=== PATIENT | male | born 1945 | race Caucasian/White ===

== ENCOUNTER 2018-08-07 06:34 | Emergency (ER) | payer MEDICARE ==
[2018-08-07 07:22] LABS: #Eosinphils 0.1 thou/uL (0.0-0.7); #Lymphocytes 1.4 thou/uL (1.20-3.40); #Monocytes 1.7 thou/uL (0.11-0.59); #Neutrophils 12.3 thou/uL (1.40-6.50); %Basophils 0.2 % (0.0-1.0); %Eosinophils 0.8 % (0.0-10.0); %Lymphocytes 8.9 % (21.0-51.0); %Neutrophils 79.1 % (42.0-75.0); Hemoglobin 17.8 g/dL (14.0-18.0); Mean Corpuscular HGB CONC 34.9 g/dL (32.0-36.0); Mean Corpuscular Hemoglobin 32.6 pg (27.0-31.0); Mean Corpuscular Volume 93.5 fL (78.0-98.0); Mean Platelet Volume 7.1 fL (7.4-10.4); Platelet Count 232 thou/uL (130-400); Red Blood Cell (RBC) Count 5.44 mill/uL (4.70-6.10); White Blood Cell (WBC) Count 15.6 thou/uL (4.8-10.8)
[2018-08-07 07:30] LABS: ALT (SGPT) 28 U/L (8-55); AST (SGOT) 30 U/L (5-34); Albumin 4.8 g/dL (3.4-4.8); Alkaline Phosphatase 114 U/L (40-150); Anion Gap 16 mmol/L (10-20); BUN (Urea Nitrogen) 8 mg/dL (8.4-25.7); Bilirubin, Total 1.4 mg/dL (0.2-1.2); Calc. Creatinine Clearance 0 mL/min (70-130); Calcium 10.3 mg/dL (7.8-10.44); Carbon Dioxide 27 mmol/L (23-31); Chloride 91 mmol/L (98-107); Estimated GFR-MDRD 73; Globulin 3.7 g/dL (2.4-3.5); Glucose 117 mg/dL (83-110); Lipase 34 U/L (8-78); Protein, Total 8.5 g/dL (5.8-8.1); Sodium 130 mmol/L (136-145)
[2018-08-07] MEDS ORDERED: Ondansetron PF 4 MG/2 ML Vial ONE (07:31)
[2018-08-07] MEDS ORDERED: Fentanyl 100 MCG/2 ML VIAL ONE (07:31)
--- NOTE | 2018-08-07 08:16 | RAD ---
SINGLE VIEW OF THE CHEST: COMPARISON: 08/05/2018. HISTORY: Dehydration. Abdominal pain. Vomiting. FINDINGS: Single view of the chest shows a normal sized cardiomediastinal silhouette. There is no evidence of c onsolidation, mass, or pleural effusion. The bones are unremarkable. IMPRESSION: No evidence of acute cardiopulmonary disease. POS: [facility]
[2018-08-07 09:49] LABS: Bilirubin Negative (Negative); Blood, Urine Negative (Negative); Clarity CLEAR (Clear); Glucose, Urine (Dipstick) Negative (Negative); Leukocyte Negative (Negative); Nitrite Negative (Negative); Protein, Urine (Dipstick) Negative (Neg-Trace); Specific Gravity, Urine 1.006 (1.002-1.036); Urobilinogen 0.2 mg/dL (0.2-1.0)
--- NOTE | 2018-08-07 10:15 | CT ---
CT ABDOMEN AND PELVIS WITH CONTRAST: Date: 08/07/18 HISTORY: Fall. Vomiting. Abdominal pain. COMPARISON: None. FINDINGS: There is a subtle peripheral ground-glass opacity in the left lower lobe, nonspecific, incompletely e valuated. Please see CT examination dated 08/05/18. No pericardial effusion. Prostate is enlarged. Oral contrast has transited through a majority of the small bowel. There is enlargement of the left adrenal gland with some adjacent stranding concerning for hemorrhage . Adrenal gland measures up to 3.2 cm in size. The aortic contour is nonaneurysmal with dense calcifications. There are multiple hypodensities of elinor th kidneys. There is either calculus or an enhancing mass within the posterior wall of the gallbladder measuring approximately 5.0 mm. Mild enlargement right adrenal gland. Spleen and pancreas unremarkable. No retroperitoneal adenopathy. IMPRESSION: 1. Enlarged left adrenal gland with concern for hemorrhage, with some periadrenal stranding and incr eased density, which is nonhomogeneous within the left adrenal gland. A follow-up adrenal protocol CT or MRI is recommended after resolution of acute symptoms. 2. Marked prostatomegaly. POS: [facility]
[2018-08-07] MEDS ORDERED: Fleet Enema 133 ML BOT FS SCH (11:00)
[2018-08-07] MEDS ORDERED: Ketorolac Tromethamine 30 MG/ML VIAL ONE (11:10)
[2018-08-07] MEDS ORDERED: Iopamidol 370 76% 50 ML VIAL FS ONE (13:36)
[2018-08-07] MEDS ORDERED: ISOVUE-370 76%-LOCM 1 ML ONE (13:36)
== END 2018-08-07 13:00 | disposition home or self-care (01) ==
LOC: ERS 06:34
DX: K80.20 Calculus of gallbladder without cholecystitis without obstruction (principal); E87.1 Hypo-osmolality and hyponatremia; F17.210 Nicotine dependence, cigarettes, uncomplicated
CPT/HCPCS: 71045; 74177; 80053; 81003; 83605; 83690; 84484; 85025; 93005; J1885; J2405; J3010

== ENCOUNTER 2018-08-09 22:43 | Inpatient (IN) | payer MEDICARE ==
[2018-08-09 23:56] LABS: #Eosinphils 0.1 thou/uL (0.0-0.7); #Lymphocytes 1.3 thou/uL (1.20-3.40); #Monocytes 1.3 thou/uL (0.11-0.59); #Neutrophils 9.1 thou/uL (1.40-6.50); %Basophils 0.4 % (0.0-1.0); %Lymphocytes 10.7 % (21.0-51.0); %Monocytes 10.7 % (0.0-10.0); %Neutrophils 77.3 % (42.0-75.0); Hemoglobin 15.9 g/dL (14.0-18.0); Mean Corpuscular HGB CONC 35.1 g/dL (32.0-36.0); Mean Corpuscular Hemoglobin 32.2 pg (27.0-31.0); Mean Corpuscular Volume 91.5 fL (78.0-98.0); Mean Platelet Volume 7.3 fL (7.4-10.4); Platelet Count 71 thou/uL (130-400); Platelet Morphology Comment Appears Decreased; RBC Distribution Width 11.8 % (11.5-14.5); Red Blood Cell (RBC) Count 4.94 mill/uL (4.70-6.10); White Blood Cell (WBC) Count 11.8 thou/uL (4.8-10.8)
[2018-08-09 23:59] LABS: ALT (SGPT) 25 U/L (8-55); AST (SGOT) 33 U/L (5-34); Albumin 3.9 g/dL (3.4-4.8); Alkaline Phosphatase 121 U/L (40-150); Anion Gap 11 mmol/L (10-20); BUN (Urea Nitrogen) 14 mg/dL (8.4-25.7); Bilirubin, Total 1.8 mg/dL (0.2-1.2); Calc. Creatinine Clearance 0 mL/min (70-130); Calcium 9.3 mg/dL (7.8-10.44); Carbon Dioxide 29 mmol/L (23-31); Chloride 88 mmol/L (98-107); Estimated GFR-MDRD 80; Globulin 3.2 g/dL (2.4-3.5); Glucose 102 mg/dL (83-110); Lipase 14 U/L (8-78); Potassium 3.2 mmol/L (3.5-5.1); Protein, Total 7.1 g/dL (5.8-8.1); Sodium 125 mmol/L (136-145)
[2018-08-10] MEDS ORDERED: Ondansetron PF 4 MG/2 ML Vial IVP PRN (02:19)
[2018-08-10] MEDS ORDERED: Zolpidem Tartrate 5 MG TAB PO PRN (02:19)
[2018-08-10] MEDS ORDERED: Ondansetron PF 4 MG/2 ML Vial ONE (02:20)
[2018-08-10] MEDS ORDERED: Morphine 4 MG/ML VIAL ONE (02:20)
[2018-08-10] MEDS ORDERED: Morphine 4 MG/ML VIAL SLOW IVP PRN (02:40)
[2018-08-10] MEDS ORDERED: Docusate 100 MG CAP PO PRN (02:40)
--- NOTE | 2018-08-10 02:47 | PDOC.EVN ---
Event Note - Event Note Event Note: H&P [id number]
[2018-08-10] MEDS ORDERED: HYDROmorphone 0.5 MG/0.5 ML SYRINGE ONE (03:01)
--- NOTE | 2018-08-10 03:15 | HP ---
CHIEF COMPLAINT: Nausea, vomiting, and abdominal pain. HISTORY OF PRESENT ILLNESS: This is a 73-year-old male admitted to the emergency room, presenting with nausea, vomiting, and abdominal pain. Of note, patient was here approximately 2 days ago with similar complaints, had a CTA at that point in time of the chest and thorax and was found to have patchy ground-glass opacities. No evidence of PE at that time. The patient had an abdominal exam done at that point in time, was found to have an adrenal hemorrhage as well. The patient states that currently he is presenting here because of abdominal pains, nausea, vomiting, and not having had a bowel movement. The patient states that he is otherwise able to eat, but due to the abdominal complaints, he has not been eating. The patient's is at bedside, who provides most of the history as well. The patient, of note, has a 60-year smoking history, has been smoking 2-3 packs a day daily as well. The patient is seen and examined in the ER. at bedside. All questions answered. ALLERGIES: NO KNOWN DRUG ALLERGIES. HOME MEDICATIONS: See MAR. FAMILY HISTORY: Unknown. SOCIAL HISTORY: Heavy drinker, heavy smoker, per . He smokes apparently two packs a day for the past 60 years and drinks daily, 3-4 beers a day. REVIEW OF SYSTEMS: All systems reviewed. Pertinent positives in HPI, otherwise negative. PHYSICAL EXAMINATION: VITAL SIGNS: Blood pressure is 128/88, temperature of 98, O2 saturations 100% on 2 L nasal cannula, and heart rate of 88. GENERAL: The patient appears to be mildly uncomfortable, sitting in a chair and smells of cigarette smoke. Disheveled, does not appear to have cleaned himself. HEENT: Pupils are equal, round, and reactive to light and accommodation. Oral cavity moist and pink. Poor dentition. NECK: Supple. Mobile. Nontender thyroid appreciated.. RESPIRATORY EXAM: Mild inspiratory crackles in bilateral lower lobes. A very faint slight increase in AP diameter. No rales or rhonchi appreciated. CARDIOVASCULAR EXAM: S1 and S2. No murmurs, rubs, or gallops appreciated sinus rhythm. ABDOMINAL EXAM: Positive bowel sounds. Soft. Tender to palpation in the epigastric region. EXTREMITIES: 2+ peripheral pulses noted. No cyanosis, clubbing, or edema. NEUROLOGIC: Cranial nerves 2 through 12 intact. No loss of sensory function. Antalgic gait. LABORATORY DATA: CBC reviewed. Basic metabolic panel reviewed. Chest x-ray, abdominal and pelvis CT scan was reviewed as well. Official radiological read was pending. ASSESSMENT: 1. Abdominal pain, concerning for volvulus versus rectosigmoid obstruction. 2. Hyponatremia. 3. Hyperkalemia. 4. Nausea and vomiting. PLAN: 1. At this point in time, we will place the patient n.p.o., provide pain medications, and normal saline. Consult GI and Surgery. He appears to be severely constipated. Unclear if this is secondary to volvulus or obstruction. Case discussed between ER and General Surgery. Plan was made to admit the patient, have GI evaluation prior to any potential surgical intervention. 2. The patient appears to have low sodium levels, low potassium levels, does have supposedly per history collected from the . However, given the other adrenal gland and normal blood pressure, it is unclear if this is secondary to a potential neuroendocrine syndrome from lung tumor or medication side effect with a simple lack of nutritional intake for the past seven days per . The patient has had significant weight loss. At this point in time, we will review the CTA of the chest done three days ago and obtain serum osmolality, urine osmolality, urine sodium, urine creatinine, calculate FENA. Start the patient on a diet once cleared by General Surgery and Gastroenterology provide normal saline for now. 3. Repeat laboratory work in the morning, p.r.n. medications. The patient wishes to remain a full code. Case and plan discussed with the patient and at length. They understand and agree with this plan. Job ID: [id number]
[2018-08-10 03:38] LABS: #Basophils 0.1 thou/uL (0.0-0.2); #Eosinphils 0.1 thou/uL (0.0-0.7); #Monocytes 1.2 thou/uL (0.11-0.59); #Neutrophils 8.4 thou/uL (1.40-6.50); %Basophils 0.5 % (0.0-1.0); %Eosinophils 0.7 % (0.0-10.0); %Lymphocytes 9.7 % (21.0-51.0); %Monocytes 11.2 % (0.0-10.0); %Neutrophils 77.9 % (42.0-75.0); Hemoglobin 14.1 g/dL (14.0-18.0); Mean Corpuscular HGB CONC 35.1 g/dL (32.0-36.0); Mean Corpuscular Hemoglobin 33.1 pg (27.0-31.0); Mean Corpuscular Volume 94.3 fL (78.0-98.0); Mean Platelet Volume 7.3 fL (7.4-10.4); Platelet Count 53 thou/uL (130-400); RBC Distribution Width 11.9 % (11.5-14.5); Red Blood Cell (RBC) Count 4.25 mill/uL (4.70-6.10); White Blood Cell (WBC) Count 10.8 thou/uL (4.8-10.8)
[2018-08-10 03:54] LABS: Anion Gap 14 mmol/L (10-20); BUN (Urea Nitrogen) 14 mg/dL (8.4-25.7); Calc. Creatinine Clearance 0 mL/min (70-130); Calcium 8.2 mg/dL (7.8-10.44); Carbon Dioxide 22 mmol/L (23-31); Chloride 92 mmol/L (98-107); Estimated GFR-MDRD 87; Glucose 99 mg/dL (83-110); Potassium 3.3 mmol/L (3.5-5.1); Sodium 125 mmol/L (136-145)
[2018-08-10] MEDS: Sodium Chloride 0.9% 1,000 ML IV SCH ×4 (03:57→23:17)
--- NOTE | 2018-08-10 07:43 | CT ---
CT ABDOMEN AND PELVIS WITH CONTRAST CT LUMBAR SPINE WITH CONTRAST WITH 3D VOLUME RENDERING: Date: 08/10/18 CLINICAL HISTORY: Post-traumatic pain, injury. FINDINGS: The imaged lung bases reveal no lobar consolidation. There is no pleural effusion visualized. There i s prominent distention of the colon, most notable at the right hemicolon, with the appearance that ma y be related to a component of a cecal bascule. When comparing to the 08/07/18 exam, this has develop ed. There remains heterogeneity and mass-like enlargement of the left adrenal gland. Bilateral renal hypodensities are redemonstrated. No free air. There is heterogeneity and enlargement of the prostate gland. CT imaging of the lumbar spine reveals multilevel degenerative change without compression fra cture or significant subluxation. IMPRESSION: 1. Redemonstration of heterogeneity and mass-like prominence of the left adrenal gland, which again may be related to underlying adrenal hemorrhage, either due to injury or possibly related to mass. As was previously recommended, follow-up dedicated imaging upon resolution of acute symptoms is recomme nded. 2. Interval development of prominent distention of the right hemicolon in the morphologic appearance that can be seen in the setting of cecal bascule or volvulus. Recommend appropriate clinical managem ent and follow-up. POS: [facility]
[2018-08-10 08:09] VITALS: BMI 20.7
[2018-08-10] MEDS ORDERED: Prevnar 13-Val Conj/PF 0.5 ML SYRINGE IM ONE (08:30)
--- NOTE | 2018-08-10 08:42 | CT ---
PRELIMINARY REPORT/[facility]/EMERGENCY AFTER HOURS PROCEDURE: EXAM: CT Chest Without Contrast EXAM DATE/TIME: 08/10/2018 2:47 AM CLINICAL HISTORY: 73 years old, male; Signs and symptoms; Cough; Patient HX: Er wr; 73 yo m presents to ed with C/O SOB , chills, cough TECHNIQUE: Imaging protocol: Axial computed tomography images of the chest without intravenous contrast. Coronal reformatted images were created and reviewed. COMPARISON: No relevant prior studies available. FINDINGS: Lungs: There is trace debris noted within the bronchi. There is no focal lung consolidation to sugges t pneumonia. Pleural space: Normal. No pneumothorax. No pleural effusion. Heart: Normal. No cardiomegaly. No pericardial effusion. Aorta: The aorta demonstrates mild atherosclerotic calcification. Lymph nodes: Unremarkable. No enlarged lymph nodes. Bones/joints: Unremarkable. No acute fracture. Soft tissues: Unremarkable. Adrenals: There is hyperdensity within the LEFT adrenal gland which is enlarged measuring approximate ly 4 x 3 x 3 cm possibly representing hemorrhage or mass. IMPRESSION: 1. There is trace debris noted within the bronchi. This may represent secretions. 2. There is hyperdensity within the LEFT adrenal gland which is enlarged measuring approximately 4 x 3 x 3 cm possibly representing hemorrhage or mass. Thank you for allowing us to participate in the care of your patient. Dictated and Authenticated by: Angel Mccray MD 08/10/2018 4:10 AM Central Time ([place] & [place]) FINAL REPORT EMERGENT AFTER HOURS EXAM CT CHEST WITHOUT IV CONTRAST: 08/10/2018 2:40 a.m. FINDINGS: Minimal patchy increased density noted within the bronchi, probably related to secretions or mucus. Three-vessel coronary artery calcific disease. A 3 x 4 cm in diameter higher attenuation mass in the left adrenal gland. This certainly could represent some acute hemorrhage. There is some minimal madrigal rrounding fat stranding. Additional imaging with follow-up MRI study, with and without contrast, gabriel ht be of benefit in further assessing this. Moderate colonic distention. I agree with [facility]. POS: [facility]
[2018-08-10] MEDS ORDERED: Heparin 5,000 UNITS/ML VIAL SC SCH (09:00)
--- NOTE | 2018-08-10 09:09 | RAD ---
CHEST 1 VIEW: HISTORY: Chest pain with abdominal pain. COMPARISON: 08/07/2018. FINDINGS: Heart size is within normal limits. Biapical pleural thickening. Scattered increased linear and int erstitial parenchymal changes, evidence for some chronic change and some mild bullous changes. Appea kajal is stable from 08/07/2018. IMPRESSION: Stable chronic changes. POS: [facility]
[2018-08-10 10:26] LABS: Creatinine, Urine 112.28 mg/dL (63-166); Sodium, Urine Less than 20 mmol/L (Not Available)
[2018-08-10] MEDS ORDERED: Fleet Enema 133 ML BOT PR SCH (13:30)
[2018-08-10] MEDS ORDERED: PROPOFOL 200 MG/20 ML VIAL ONE (14:09)
[2018-08-10] MEDS ORDERED: Lidocaine 1% PF 5 ML VIAL ONE (14:09)
--- NOTE | 2018-08-10 15:41 | CON ---
DATE OF CONSULTATION: 08/10/2018 HISTORY OF PRESENT ILLNESS: This is a 73-year-old man, who was admitted with recurrent generalized abdominal pain over the last 4 to 5 days. Pain is described as crampy and intermittent, associated with multiple episodes of nausea and nonbilious emesis. The patient denies any hematemesis, hematochezia, or melena. He admits to some non-quantified weight loss over the last 1 week, which he attributes to anorexia. PAST MEDICAL HISTORY: Unremarkable. PAST SURGICAL HISTORY: He has no previous surgeries. SOCIAL HISTORY: The patient is , lives at home with his . He has greater than 80-[id number]-[id number] cigarette smoking history. He drinks moderate amount of alcohol occasionally. He discusses use of 3 to 4 beers a day. He denies any illicit drug abuse. FAMILY HISTORY: Noncontributory for this patient's age. PREHOSPITALIZATION MEDICATIONS: None. ALLERGIES: THE PATIENT DENIES ANY KNOWN DRUG ALLERGIES. REVIEW OF SYSTEMS: Ten-point review of systems is essentially unremarkable except as stated in past medical history and chief complaint. PHYSICAL EXAMINATION: GENERAL: This reveals a 73-year-old, normally-developed man, who is otherwise coherent and interactive, appears stated age. The patient is alert and oriented x3, appears to be in no acute distress at the time of my evaluation. He has had a fair amount of gait imbalance and had fallen on multiple occasions recently. He denies any head trauma. VITAL SIGNS: Today include blood pressure 125/74, pulse is 98, respiratory rate is 15, temperature 97.8 degrees Fahrenheit, oxygen saturation 94% on room air. HEENT: Reveals normocephalic and atraumatic. He has no sclerae icterus present. NECK: He has no jugular venous distention noted. HEART: Reveals regular rate and rhythm. No murmurs or gallops auscultated. LUNGS: Clear to auscultation bilaterally. Breathing is regular and nonlabored. ABDOMEN: Soft, moderately distended, and diffusely tender to palpation. He has positive rebound tenderness to palpation. Bowel sounds are present and intermittently hyperactive. Liver and spleen are nonpalpable below costal margin. NEUROLOGIC: Reveals no focal deficits present. EXTREMITIES: Reveal 2+ radial and pedal pulses bilaterally. No ankle edema is present. LABORATORY FINDINGS: Laboratory findings today include CBC with 10,800 white blood cells, hemoglobin and hematocrit 14.1 and 40.1 respectively, platelet count is 53,000. This is in contrast to platelet count of 71,000 yesterday with a white blood cell count which was 11,800. Metabolic profile today; sodium 125, potassium 3.3, chloride is 92, bicarb is 22, BUN 14, creatinine 0.86, glucose is 99. Serum osmolality is 263. Lactic acid is normal today at 0.8. I have personally reviewed the CT scan of the abdomen and pelvis, which is remarkable for multiple distended loops of small bowel and right colon. The left colon is partially decompressed. There is, however, some gas in the rectum. There is an incidental finding of an enlarged left adrenal gland, suggestive of either adrenal hemorrhage, especially given recent history of fall. There is no pneumoperitoneum or significant free fluid noted in the peritoneal cavity. IMPRESSION: 1. Acute abdominal pain with associated dilated right colon. Rule out acute large bowel obstruction. 2. Acute hyponatremia, likely secondary to syndrome of inappropriate antidiuretic hormone secretion given this patient's significant history of both alcoholism and tobacco abuse. 3. Acute hypokalemia. 4. Likely, chronic thrombocytopenia. PLAN: 1. We will ask Gastroenterology to evaluate the patient for possible flexible proctosigmoidoscopy to rule out mechanical bowel obstruction secondary to neoplastic process. 2. The patient will likely require surgical intervention following endoscopy. 3. Meanwhile, we will continue with bowel rest and IV hydration and correct abnormal electrolytes. 4. Above findings and plan were discussed with the patient and his at bedside. 5. I have advised the patient that any surgical intervention at this time will likely include bowel resection and possible colostomy, which might be temporary. The patient and his have indicated understanding of information given. 6. I have answered their questions. Thank you again, Dr. Araujo, for allowing me the opportunity to participate in care of this patient. Job ID: [id number]
[2018-08-10] MEDS ORDERED: ISOVUE-370 76%-LOCM 1 ML ONE (17:08)
--- NOTE | 2018-08-10 17:26 | CON ---
DATE OF CONSULTATION: 08/10/2018 CONSULTING PHYSICIAN: Mainor Araujo DO REASON FOR CONSULTATION: Abdominal pain, cecal volvulus. HISTORY OF PRESENT ILLNESS: The patient is a 73-year-old male with past medical history of alcohol abuse, tobacco abuse and probable benign prostatic hyperplasia with elevated PSA, presenting with complaints of abdominal pain. He states that he was in his usual state of health until approximately 5 to 7 days ago when he began having increasing left-sided abdominal pain, that then quickly moved to the periumbilical area. This pain was characterized as a cramping/aching/"blah" type pain, would radiate to the midepigastric area, was constant with waxing and waning severity, and reached a severity of 7-8/10. This pain was worse with burping, pressure/bumping of the region, and increased physical activity, better with taking Pepto-Bismol and having a bowel movement. This abdominal pain was also associated with increased nausea and vomiting with nonbloody emesis and decreased frequency of having a bowel movement, although the patient was passing gas throughout this time as well. With worsening of the symptoms, it prompted him to seek healthcare assistance at [facility] ER and was seen in the ER on [address] scans fairly unrevealing on prior evaluation; however, with the CT scan that was done on August 10, it did show prominent distention of the colon concerning for cecal volvulus. He was ultimately admitted to the hospital for further evaluation. Currently, he denies any fevers, chills, hematemesis, hematochezia, melena, dysphagia or odynophagia. REVIEW OF SYSTEMS: A 10 category review of systems was obtained with all responses negative except for the pertinent positives as listed in HPI. PAST MEDICAL HISTORY: As per HPI. PAST SURGICAL HISTORY: No prior surgeries. FAMILY HISTORY: Denies any GI malignancies. SOCIAL HISTORY: Drinks anywhere between 10 to 12 beers daily and also smokes approximately 1 to 2 packs per day. Denies any illicit drug use. OUTPATIENT MEDICATIONS: None. ALLERGIES: NO KNOWN DRUG ALLERGIES. PHYSICAL EXAMINATION: VITAL SIGNS: Temperature 97.5, pulse 85, blood pressure 136/82, respiratory rate 16, and saturating 95% on room air. GENERAL: The patient was lying in bed, in no acute distress. Alert and oriented x4. HEENT: Normocephalic and atraumatic. NECK: Supple. No JVD noted. CARDIOVASCULAR: Regular rate and rhythm with no discernible murmurs, gallops or rubs. RESPIRATORY: Clear to auscultation bilaterally with no discernible wheezes or rales, although increased resistance to air flow auscultated in the bilateral lower lung pires. ABDOMEN: Normoactive bowel sounds. Soft [id number] abdominal distention as well as tenderness to palpation in relatively all abdominal quadrants, but more especially within the right lower quadrant and left lower quadrant. EXTREMITIES: No cyanosis, clubbing or edema. LABORATORY DATA: CBC with a white blood cell count of 10.8, hemoglobin 14.1, hematocrit 40.1, and platelets 53. Chemistry with a sodium of 125, potassium 3.3, chloride 92, CO2 of 22, BUN 14, creatinine 0.86, and glucose 99. AST 33, ALT 25, and alkaline phosphatase 121. Total bilirubin 1.8, albumin 3.9, and lipase 14. IMAGING DATA: CT of the chest showed trace debris within the bronchi as well as a 4 cm x 3 cm x 3 cm left adrenal mass consistent with hemorrhage or mass. It also showed 3-vessel coronary artery disease as well as moderate colonic distention. CT of the abdomen and pelvis was also obtained on August 10, 2018, which showed prominent distention of the colon, most especially within the cecum with a possible cecal bascule/volvulus. ASSESSMENT AND PLAN: The patient is a 73-year-old male with past medical history of alcohol abuse, tobacco abuse, probable benign prostatic hyperplasia, presenting with increased abdominal pain and imaging concerning for cecal volvulus. Cecal volvulus: The patient is presenting with a relatively acute onset of periumbilical abdominal pain, that would radiate to the epigastric region, is characterized as a cramping/aching-type sensation, will reach a severity of 7-8/10. This is associated with increased nausea, vomiting, and decreased frequency of his bowel movements with his last bowel movement being approximately 3 to 5 days ago. Upon evaluation in the ER within the last 24 to 48 hours, he was noted to have significant colonic distention, centered around the cecum, with imaging findings more concerning for a cecal volvulus. However, upon review with the radiologist, a sigmoid process creating obstruction proximally to the lesion cannot be entirely ruled out at this time, although unlikely given normal caliber of the descending and distal transverse colon. At this time, differential could include a sigmoid mass (less likely), colonic stricture (less likely), cecal volvulus, colonic neoplasm (the patient has never had a colonoscopy) or Tahira syndrome/colonic pseudo-obstruction (less likely). RECOMMENDATIONS: 1. We will maintain the patient on n.p.o. status. 2. We will plan for a flexible sigmoidoscopy later today for evaluation of the distal colon and possible obstructive process there. I would recommend Fleet enemas x2 in order to increase visualization of this particular region and increased risk of perforation with this particular procedure as well. 3. If the left colon is negative for any evidence of colonic obstruction, then I would recommend General Surgery evaluation for decompression of this cecal volvulus. We will continue to follow. Please call with any questions. Job ID: [id number]
--- NOTE | 2018-08-10 18:07 | PRG ---
DATE OF SERVICE: 08/10/2018 SUBJECTIVE: The patient is a 73-year-old male with past medical history significant for 2 to 3 packs per day smoking habit, who presented to the hospital with a 1-week history of worsening nausea, vomiting, and abdominal pain. The patient has been admitted with cecal volvulus versus obstruction. The patient is seen this morning, with his at the bedside. Right now, the patient denies any nausea, vomiting, or diarrhea. He states that he has 5/10 pain located in the right lower quadrant. Otherwise, he has no other pain present. He denies chest pain or shortness of breath. He denies subjective fever or chills. OBJECTIVE: VITAL SIGNS: Blood pressure 125/74. The patient is afebrile. Pulse is 98, respirations 15, O2 saturations 94% on room air. GENERAL: This is an elderly male, resting in bed, breathing comfortably, in no acute distress. NECK: Supple. No lymphadenopathy. No JVD. No carotid bruits. HEENT: Head is atraumatic and normocephalic. Mucous membranes are moist. CV: S1 and S2, regular rate and rhythm. No appreciable murmurs, rubs, or gallops. LUNGS: Regular respiratory rate and pattern, overall clear, the patient does have overall decreased vesicular breath sounds, but no rhonchi or wheezes noted. ABDOMEN: Positive bowel sounds throughout all four quadrants, tender to palpation in right lower quadrant. EXTREMITIES: No edema present. Lower extremities are well perfused and warm. SKIN: Clean and dry, no rash. LABORATORY DATA: White blood cell count 10.8, hemoglobin 14.1, hematocrit 40.1. Sodium 125, potassium 3.3, chloride 92, serum osmolality 263, creatinine 0.86. Urine osmolality 552, urine creatinine 112, urine sodium less than 20. ASSESSMENT: 1. Abdominal pain secondary to cecal volvulus versus rectosigmoid obstruction; given the patient's lack of routine medical follow up and lack of colonoscopy, cannot rule out possibility of malignancy at this time. 2. Adrenal mass versus underlying hemorrhage of the left adrenal gland, measuring 4 x 4 x 3. 3. Multiple electrolyte abnormalities including hyponatremia and hypokalemia. 4. Tobacco abuse. PLAN: Both GI and Surgery have been consulted. The plan this morning is for flexible sigmoidoscopy by GI. Appreciate GI and Surgical recommendations. We will continue supportive care at this time. NPO. Continue IV fluid resuscitation. Further recommendations based on hospital course. Care discussed with Dr. Booker who agrees with management. AM labs. Job ID: [id number] VAN
[2018-08-10] MEDS: Piperacillin/Tazobactam 3.375 GM in Sodium Chloride 0.9% 100 ML IVPB SCH ×2 (18:48→23:13)
[2018-08-10] MEDS: Oxazepam 10 MG CAP PO SCH (20:46)
[2018-08-11 04:42] LABS: #Eosinphils 0.1 thou/uL (0.0-0.7); #Lymphocytes 1.2 thou/uL (1.20-3.40); #Monocytes 1.1 thou/uL (0.11-0.59); %Basophils 0.2 % (0.0-1.0); %Neutrophils 73.7 % (42.0-75.0); Hemoglobin 13.7 g/dL (14.0-18.0); Mean Corpuscular HGB CONC 35.7 g/dL (32.0-36.0); Mean Corpuscular Hemoglobin 33.3 pg (27.0-31.0); Mean Corpuscular Volume 93.3 fL (78.0-98.0); Mean Platelet Volume 8.1 fL (7.4-10.4); Platelet Count 41 thou/uL (130-400); RBC Distribution Width 11.7 % (11.5-14.5); Red Blood Cell (RBC) Count 4.12 mill/uL (4.70-6.10); White Blood Cell (WBC) Count 9.5 thou/uL (4.8-10.8)
[2018-08-11 04:58] LABS: Anion Gap 12 mmol/L (10-20); BUN (Urea Nitrogen) 10 mg/dL (8.4-25.7); Calc. Creatinine Clearance 85 mL/min (70-130); Calcium 8.2 mg/dL (7.8-10.44); Carbon Dioxide 25 mmol/L (23-31); Chloride 98 mmol/L (98-107); Estimated GFR-MDRD Greater than 90; Glucose 78 mg/dL (83-110); Potassium 3.3 mmol/L (3.5-5.1); Sodium 132 mmol/L (136-145)
[2018-08-11] MEDS: Piperacillin/Tazobactam 3.375 GM in Sodium Chloride 0.9% 100 ML IVPB SCH ×4 (05:30→23:56)
--- NOTE | 2018-08-11 07:39 | OP ---
DATE OF PROCEDURE: 08/10/2018 PROCEDURE PERFORMED: Flexible sigmoidoscopy with polypectomy. INDICATIONS FOR PROCEDURE: Abnormal GI imaging (possible cecal volvulus and/or possible sigmoid colon mass with distention of the cecum, ascending colon, and transverse colon). DESCRIPTION OF PROCEDURE: After the risks and benefits of the procedure were explained to the patient including risks of bleeding, infection, perforation, reactions to anesthesia, aspiration and/or pain, informed consent was obtained. The patient was then taken to the endoscopy suite, where deep sedation was administered via propofol and anesthesia support. Once adequate sedation was achieved, a digital rectal examination was performed followed by introduction of the standard colonoscope into the rectum, which was then advanced to the cecum with [id number] difficulty given the significant amount of retained liquid and solid stool (poor prep). The patient tolerated the procedure well with no immediate perioperative complications. Upon conclusion of the procedure, all equipment was removed from the patient, and the patient was transferred to PACU in satisfactory condition. FINDINGS: DIGITAL RECTAL EXAM: Ggpppm-tb-lmlig size hemorrhoids were seen that exhibited mild oozing of blood as well as one hemorrhoid that was dark purple in coloration indicating a possible thrombosed hemorrhoid. COLON FINDINGS: A akpoisur-mz-lbaqa amount of retained solid and liquid stool was seen throughout the entire colon significantly limiting visualization and contributing to difficulty advancing the colonoscope appropriately. However, the colonoscope was successfully advanced to the cecum as evidenced by the ileocecal valve (appendiceal orifice could not be visualized due to retained STOOL). The mucosa within the cecum (of the mucosa visualized that was not covered with stool) exhibited increased mucosal erythema, mild oozing of blood as well as interspersed areas of mottled mucosa with a dark purplish hue. This was also associated with scattered small erosions/ulcerations measuring approximately 2 to 3 mm in size. There was no significant bleeding associated with this region, and this appearance of the mucosa extended up from the cecum to the junction between the cecum and the ascending colon. However, at the region of the ascending colon, there was a strict demarcation between affected and unaffected colonic mucosa with the mucosa within the cecum exhibiting the above properties and transitioning to normal-appearing mucosa within the ascending colon. At which point, normal-appearing mucosa was seen in the ascending colon. A 4- to 5-mm polyp was seen in the proximal transverse colon, but not intervened upon during this examination due to increased risk of bleeding and/or complication. Normal-appearing mucosa was also seen in the distal transverse, descending, and sigmoid colons, although visualization was significantly limited due to the retained stool. A 15-mm globular-appearing polyp with a cribriform-type appearance was seen in the rectum at approximately 10 cm past the anal verge. This was completely removed with snare cautery polypectomy, retrieved, and placed in specimen jar for evaluation primarily due to its worrisome features for colonic cancer progression. Multiple other polyps were seen within the rectum, but not intervened upon at this time, again due to risk of possible increased bleeding in light of significant thrombocytopenia and possible need for anticoagulation here in the near future. Small internal hemorrhoids were seen on rectal retroflexion. IMPRESSION: 1. Erythematous mucosa was seen within the cecum, that exhibited a mottled purplish hue, and it was associated with scattered 2- to 3-mm ulcerations consistent with ischemic colitis. 2. Mflscdqg-fv-gzyhn amount of retained stool seen throughout the entire colon limiting visualization of the colonic mucosa. 3. 4- to 5-mm transverse colon polyp, not intervened upon during this colonoscopy. 4. Multiple rectal polyps, not intervened upon during this colonoscopy. 5. A 15-mm cribriform rectal polyp, status post snare cautery polypectomy and hemoclip placement x1 for hemostasis. 6. Small internal hemorrhoids. 7. Izqbbs-yu-psiss size hemorrhoids with possible thrombosed component to it. RECOMMENDATIONS: 1. We would recommend a CT angiography of the superior mesenteric artery vessels to determine if there is significant occlusion/vascular disease contributing to the ischemic colitis seen in the cecum. 2. We would continue to monitor for signs of active GI bleeding. 3. We would maintain normotensive pressures as part of treatment for ischemic colitis. 4. We would place the patient on antibiotic therapy given the fact that there were ulcerations seen within the cecum. They could further progress to infection/bacteremia. 5. The patient will need a repeat colonoscopy within the next 6 months as part of completion and removal of these other polyps. We will continue to follow. Please call with any questions. Job ID: [id number]
[2018-08-11] MEDS: Oxazepam 10 MG CAP PO SCH ×3 (08:03→20:14)
[2018-08-11] MEDS: Thiamine 100 MG TAB PO SCH (08:03)
[2018-08-11] MEDS: Folic Acid 1 MG TAB PO SCH (08:03)
[2018-08-11] MEDS ORDERED: Magnesium Sulfate 2 GM, Potassium Chloride 40 MEQ in Sodium Chloride 0.9% 250 ML 250 ML IVPB SCH (09:00)
--- NOTE | 2018-08-11 11:38 | PRG ---
DATE OF SERVICE: 08/11/2018 SUBJECTIVE: Mr. Arredondo is a 73-year-old man admitted with sudden onset abdominal pain. The patient underwent lower endoscopy yesterday with polypectomy. Additionally, endoscopy revealed ischemic, but non-necrotic cecum. No evidence of large bowel obstruction was noted. This morning the patient reports significant improvement with regard to the right lower quadrant abdominal pain. He admits to passing some flatus. He has had one bowel movement since endoscopy that occurred last night. He denies any nausea or vomiting. He denies any fevers or chills. OBJECTIVE: VITAL SIGNS: Today include blood pressure 132/53, pulse 72, respiratory rate 16, temperature is 98.4 degrees Fahrenheit, and oxygen saturation 97% on room air. HEART: Reveals regular rate and rhythm. LUNGS: Clear to auscultation bilaterally. ABDOMEN: Soft with right lower quadrant tenderness to palpation, which is definitely an improvement over yesterday. Clearly, he has no rebound tenderness present. Liver and spleen remain nonpalpable below costal margin. NEUROLOGIC: Reveals no focal deficits present. LABORATORY FINDINGS: Today includes a CBC with 9500 white blood cells, hemoglobin and hematocrit 13.7 and 38.4 respectively. Platelet count is quite low at 41,000. Metabolic profile; sodium 132, potassium 3.3, chloride is 98, bicarb is 25, BUN 10, creatinine 0.81, glucose is 78. IMPRESSION: 1. Ischemic cecum. There is no clinical evidence of colonic necrosis. 2. Resolving abdominal pain secondary to #1. PLAN: We will initiate clear liquid diet today. I have informed the patient of the findings from the endoscopy. I also have informed him that due to his significant tobacco abuse, he is at significant risk for ischemic events including bowel necrosis, stroke or myocardial infarction. The patient indicates understanding information given. I have strongly advised him to consider tobacco cessation. He will be discussing this with his primary care physician. There is no acute surgical indication for this patient at this time. Job ID: [id number]
[2018-08-11] MEDS: Sodium Chloride 0.9% 1,000 ML IV SCH ×3 (16:45→23:56)
--- NOTE | 2018-08-11 17:56 | PRG ---
DATE OF SERVICE: 08/11/2018 REASON FOR CONSULTATION: Abdominal pain, ischemic colitis. SUBJECTIVE: The patient states that he is feeling much better today with intermittent bouts of right lower quadrant abdominal pain throughout the day, but has improved in terms of frequency and severity when it does occur. He did have a smaller volume bowel movement earlier today that was nonbloody in character, however, he has not had any episodes of passing flatus within the last 12 hours. With him being placed on a clear liquid diet, he has been able to tolerate this well with no problems or complaints or increase in his abdominal pain. Currently, he denies any nausea, vomiting, fevers, chills, GI bleeding. OBJECTIVE: VITAL SIGNS: Temperature 99, pulse 76, blood pressure 119/71, respiratory rate 16, saturating 96% on room air. GENERAL: The patient was lying in bed, in no acute distress. Alert and oriented x4. CARDIOVASCULAR: Regular rate and rhythm. RESPIRATORY: Clear to auscultation bilaterally. ABDOMEN: Normoactive bowel sounds. Soft. Mild to moderate abdominal distention. Tenderness to palpation in the right upper quadrant and right lower quadrant. EXTREMITIES: No cyanosis, clubbing, or edema. LABORATORY DATA: CBC with a white blood cell count of 9.5, hemoglobin 13.7, hematocrit 38.4, platelets 41. Chemistry with a sodium of 132, potassium 3.3, chloride 98, CO2 of 25, BUN 10, creatinine 0.81, glucose 78. IMAGING DATA: The patient underwent a flexible sigmoidoscopy on 08/10/2018 that was able to traverse the entire colon with visualization of the cecum achieved albeit limited due to a significant amount of retained solid/liquid stool seen throughout the entire colon within the cecum was increased mucosal erythema that was interspersed with patches of mottled areas of mucosa with a purplish dark reddish hue as well as scattered 2-3 mm ulcerations throughout this area as well. There was an abrupt transition point between the ascending and descending colon and cecum, consistent with ischemic colitis. A 15 mm polyp was also removed from the rectum that exhibited a cribriform type appearance and concern for a higher grade lesion, hemoclip x1 was placed for possible post polypectomy bleed. ASSESSMENT AND PLAN: The patient is a 73-year-old male with past medical history of alcohol abuse, tobacco abuse and probable benign prostatic hyperplasia with elevated PSA, presenting with increased abdominal pain and endoscopy imaging consistent with ischemic colitis. Ischemic colitis. The patient initially presented with relatively acute onset of periumbilical abdominal pain that would radiate to the epigastric region. It was characterized as a cramping/aching type sensation. This was associated with increased nausea, vomiting, and decreased frequency of bowel movements prior to admission. On admission in the ER, he was noted to have imaging findings consistent for cecal volvulus/bascule. However, upon conferring with the Radiology and General Surgery services, it was unclear if there might be a sigmoid mass contributing to his increased dilation of the transverse and right colon. He subsequently underwent flexible sigmoidoscopy on 08/10/2018 with the ability to achieve visualization of the cecum and the area in question within the area in question exhibited increased mucosal erythema as well as a mottled type appearance with a purplish hue and scattered ulcerations consistent with ischemic colitis. Given his significant smoking history and evidence of coronary artery disease as seen on the CT scans during this admission, the likelihood of atherosclerotic disease within the superior mesenteric arteries is likely. RECOMMENDATIONS: 1. Would continue the patient on IV fluid administration as well as advancing the patient's diet as tolerated. 2. Would consider obtaining a CT angiography for further visualization of the superior mesenteric artery and its tributaries for any significant compression/decreased flow that might be contributing to his ischemic colitis. However, this does not need to be performed during this hospitalization given improvement in his clinical status and would not change current clinical management at this time unless his clinical picture deteriorates. 3. Would avoid anticoagulation at least at the current point in time, especially given the presence of ulcerations seen during the lower endoscopy. 4. Agree with antibiotic administration for prophylaxis against abdominal infection. We will continue to follow. Please call with any questions. Job ID: [id number]
--- NOTE | 2018-08-11 19:49 | PDOC.PN ---
- Subjective Encounter Start Date: 08/11/18 Encounter Start Time: 10:40 Pt seen for followup re: abdominal pain. Says he feels better. - Objective Resuscitation Status - Order Detail: 08/10/18 02:19 Resuscitation Status Routine Resuscitation Status: FULL: Full Resuscitation Discussed with: patient and Vital Signs & Weight: Vital Signs (12 hours) Temp Pulse Resp BP Pulse Ox 08/11/18 15:41 99.0 F 76 16 119/71 96 08/11/18 11:09 97.7 F 73 16 122/70 97 08/11/18 08:09 97 Weight Admit Weight 161 lb 1.6 oz Weight 161 lb 1.6 oz I&O: 08/10/18 08/11/18 08/12/18 06:59 06:59 06:59 Intake Total 4125 3000 Output Total 725 Balance 4125 2275 Result Diagrams: 08/11/18 04:24 08/11/18 04:24 Additional Labs: Accuchecks 08/10/18 21:24 POC Glucose 80 Phys Exam - Physical Examination Constitutional: NAD HEENT: moist MMs Neck: supple Respiratory: clear to auscultation bilateral Cardiovascular: RRR Gastrointestinal: soft Neurological: moves all 4 limbs Psychiatric: normal affect Dx/Plan (1) Abdominal pain Code(s): R10.9 - UNSPECIFIED ABDOMINAL PAIN Status: Acute Comment: 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 (2) BPH (benign prostatic hyperplasia) Code(s): N40.0 - BENIGN PROSTATIC HYPERPLASIA WITHOUT LOWER URINRY TRACT SYMP Status: Chronic Comment: Pt to followup with urology as outpatient (3) Tobacco abuse Code(s): Z72.0 - TOBACCO USE Status: Chronic Comment: counseled patient, start nicotine replacement therapy (4) Alcohol abuse Code(s): F10.10 - ALCOHOL ABUSE, UNCOMPLICATED Status: Chronic Comment: counseled patient, start ASE protocol - Plan plan discussed w/ family, continue antibiotics, out of bed/ambulate * . Review of Systems - Review of Systems Constitutional: other. negative: fever, chills, sweats, weakness, malaise Gastrointestinal: Abdominal Pain. negative: Nausea, Vomiting, Diarrhea, Constipation, Melena, Hematochezia - Medications/Allergies Allergies/Adverse Reactions: Allergies Allergy/AdvReac Type Severity Reaction Status Date / Time No Known Allergies Allergy Verified 08/10/18 08:23 Medications: Current Medications Acetaminophen (Tylenol) 650 mg PO Q4H PRN PRN Reason: Headache/Fever/Mild Pain (1-3) Docusate Sodium (Colace) 100 mg PO BIDPRN PRN PRN Reason: Constipation Folic Acid (Folvite) 1 mg PO DAILY [facility] Last Admin: 08/11/18 08:03 Dose: 1 mg Heparin Sodium (Porcine) (Heparin) 5,000 units SC BID [facility] Piperacillin Sod/Tazobactam (Sod 3.375 gm/ Sodium Chloride) 100 mls @ 200 mls/ hr IVPB Q6HR [facility] Last Admin: 08/11/18 17:54 Dose: 100 mls Sodium Chloride (Normal Saline 0.9%) 1,000 mls @ 125 mls/hr IV .Q8H [facility] Last Admin: 08/11/18 18:59 Dose: 1,000 mls Morphine Sulfate (Morphine) 2 mg SLOW IVP Q8H PRN PRN Reason: Breakthrough Pain Nicotine (Nicoderm Patch) 21 mg TD Q24H [facility] Ondansetron HCl (Zofran) 4 mg IVP Q6H PRN PRN Reason: Nausea/Vomiting Oxazepam (Serax) 10 mg PO TID [facility] Last Admin: 08/11/18 16:37 Dose: Not Given Sodium Chloride (Flush - Normal Saline) 10 ml IVF PRN PRN PRN Reason: Saline Flush Thiamine HCl (Thiamine) 100 mg PO QAM [facility] Last Admin: 08/11/18 08:03 Dose: 100 mg Zolpidem Tartrate (Ambien) 5 mg PO HSPRN PRN PRN Reason: Insomnia
[2018-08-11] MEDS: Nicotine 21 MG PATCH TD SCH (20:13)
[2018-08-11] MEDS: Acetaminophen 325 MG TAB PO PRN (23:54)
[2018-08-12] MEDS: Piperacillin/Tazobactam 3.375 GM in Sodium Chloride 0.9% 100 ML IVPB SCH ×3 (05:29→20:30)
[2018-08-12 06:06] LABS: #Basophils 0.1 thou/uL (0.0-0.2); #Eosinphils 0.1 thou/uL (0.0-0.7); #Lymphocytes 1.2 thou/uL (1.20-3.40); #Monocytes 1.1 thou/uL (0.11-0.59); %Basophils 0.8 % (0.0-1.0); %Lymphocytes 16.2 % (21.0-51.0); %Monocytes 14.6 % (0.0-10.0); %Neutrophils 66.5 % (42.0-75.0); Hemoglobin 12.5 g/dL (14.0-18.0); Mean Corpuscular HGB CONC 35.5 g/dL (32.0-36.0); Mean Corpuscular Hemoglobin 33.4 pg (27.0-31.0); Mean Corpuscular Volume 93.9 fL (78.0-98.0); Mean Platelet Volume 8.2 fL (7.4-10.4); Platelet Count 38 thou/uL (130-400); RBC Distribution Width 11.8 % (11.5-14.5); Red Blood Cell (RBC) Count 3.76 mill/uL (4.70-6.10); White Blood Cell (WBC) Count 7.5 thou/uL (4.8-10.8)
[2018-08-12 06:19] LABS: Phosphorus 2.2 mg/dL (2.3-4.7)
[2018-08-12 06:26] LABS: Anion Gap 7 mmol/L (10-20); BUN (Urea Nitrogen) 5 mg/dL (8.4-25.7); Calc. Creatinine Clearance 100 mL/min (70-130); Calcium 7.7 mg/dL (7.8-10.44); Carbon Dioxide 28 mmol/L (23-31); Chloride 102 mmol/L (98-107); Estimated GFR-MDRD Greater than 90; Glucose 92 mg/dL (83-110); Magnesium 2.3 mg/dL (1.6-2.6); Potassium 3.2 mmol/L (3.5-5.1); Sodium 134 mmol/L (136-145)
[2018-08-12] MEDS ORDERED: Potassium Phosphate 30 MMOL in Sodium Chloride 0.9% 250 ML 250 ML IVPB SCH (07:00)
[2018-08-12] MEDS: Oxazepam 10 MG CAP PO SCH ×3 (09:05→20:30)
[2018-08-12] MEDS: Thiamine 100 MG TAB PO SCH (09:05)
[2018-08-12] MEDS: Folic Acid 1 MG TAB PO SCH (09:06)
--- NOTE | 2018-08-12 11:50 | PRG ---
DATE OF SERVICE: 08/12/2018 SUBJECTIVE: Mr. Arredondo is a 73-year-old man, who was admitted with abdominal pain. The patient reports having 2 large bowel movements overnight. This morning reports decrease in abdominal pain. He is passing flatus. He is tolerating clear liquid diet. OBJECTIVE: VITAL SIGNS: Include blood pressure of 137/74, pulse 70, respiratory rate is 20, temperature 97.3 degrees Fahrenheit, oxygen saturation 98% on room air. HEART: Reveals regular rate and rhythm. LUNGS: Clear to auscultation bilaterally. ABDOMEN: Soft with decreasing right lower quadrant tenderness to palpation with no gross rebound tenderness present. LABORATORY FINDINGS: Today include a CBC with 7500 white blood cells, hemoglobin and hematocrit 12.5 and 35.3 respectively, platelet count is 38,000. Metabolic profile; sodium 134, potassium 3.2, chloride is 102, bicarb is 28, BUN is 5, creatinine 0.69, glucose is 92, phosphorus is 2.2, magnesium is 2.3. IMPRESSION: 1. Resolving abdominal pain. 2. Colonic ischemia involving the cecum, stable. 3. Stable chronic thrombocytopenia. 4. Acute hypokalemia. PLAN: 1. Advance diet to regular. 2. Correct abnormal electrolytes. 3. There remains no acute surgical indication for this patient at this time. Job ID: [id number]
[2018-08-12] MEDS: Sodium Chloride 0.9% 1,000 ML IV SCH (18:14)
--- NOTE | 2018-08-12 18:50 | PDOC.PN ---
- Subjective Encounter Start Date: 08/12/18 Encounter Start Time: 08:20 Pt seen for followup re: abdominal pain. Feels better. Tolerating diet. - Objective Resuscitation Status - Order Detail: 08/10/18 02:19 Resuscitation Status Routine Resuscitation Status: FULL: Full Resuscitation Discussed with: patient and Vital Signs & Weight: Vital Signs (12 hours) Temp Pulse Resp BP Pulse Ox 08/12/18 15:36 97.3 F L 77 20 158/88 H 99 08/12/18 12:00 97.5 F L 72 20 126/71 98 08/12/18 07:22 97.3 F L 70 20 137/74 98 Weight Admit Weight 161 lb 1.6 oz Weight 161 lb 1.6 oz I&O: 08/11/18 08/12/18 08/13/18 06:59 06:59 06:59 Intake Total 4125 6680.5 1450 Output Total 725 Balance 4125 5955.5 1450 Result Diagrams: 08/12/18 05:25 08/12/18 05:25 Additional Labs: Accuchecks 08/12/18 08/11/18 05:50 20:47 POC Glucose 100 78 Phys Exam - Physical Examination Constitutional: NAD HEENT: moist MMs Neck: supple Respiratory: clear to auscultation bilateral Cardiovascular: RRR Gastrointestinal: soft mild tenderness, no guarding or rigidity Neurological: moves all 4 limbs Psychiatric: normal affect Dx/Plan (1) Abdominal pain Code(s): R10.9 - UNSPECIFIED ABDOMINAL PAIN Status: Acute Comment: 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 Pt is tolearing diet. (2) BPH (benign prostatic hyperplasia) Code(s): N40.0 - BENIGN PROSTATIC HYPERPLASIA WITHOUT LOWER URINRY TRACT SYMP Status: Chronic Comment: urology service will see pt as outpatient (3) Tobacco abuse Code(s): Z72.0 - TOBACCO USE Status: Chronic Comment: continue nicotine replacement therapy (4) Alcohol abuse Code(s): F10.10 - ALCOHOL ABUSE, UNCOMPLICATED Status: Chronic Comment: continue ASE protocol (5) Impaired ambulation Code(s): R26.2 - DIFFICULTY IN WALKING, NOT ELSEWHERE CLASSIFIED Status: Chronic Comment: Pt will likely need SNU - Plan PT/OT, out of bed/ambulate * . Review of Systems - Review of Systems Constitutional: weakness Gastrointestinal: Abdominal Pain. negative: Nausea, Vomiting, Diarrhea, Constipation, Melena, Hematochezia Skin: negative: Rash, Lesions, Shaheen, Bruising - Medications/Allergies Allergies/Adverse Reactions: Allergies Allergy/AdvReac Type Severity Reaction Status Date / Time No Known Allergies Allergy Verified 08/10/18 08:23 Medications: Current Medications Acetaminophen (Tylenol) 650 mg PO Q4H PRN PRN Reason: Headache/Fever/Mild Pain (1-3) Last Admin: 08/11/18 23:54 Dose: 650 mg Docusate Sodium (Colace) 100 mg PO BIDPRN PRN PRN Reason: Constipation Folic Acid (Folvite) 1 mg PO DAILY [facility] Last Admin: 08/12/18 09:06 Dose: 1 mg Heparin Sodium (Porcine) (Heparin) 5,000 units SC BID [facility] Piperacillin Sod/Tazobactam (Sod 3.375 gm/ Sodium Chloride) 100 mls @ 200 mls/ hr IVPB 0200,0800,1400,2000 [facility] Nicotine (Nicoderm Patch) 21 mg TD Q24HR [facility] Last Admin: 08/11/18 20:13 Dose: 21 mg Ondansetron HCl (Zofran) 4 mg IVP Q6H PRN PRN Reason: Nausea/Vomiting Oxazepam (Serax) 10 mg PO TID [facility] Last Admin: 08/12/18 14:29 Dose: 10 mg Sodium Chloride (Flush - Normal Saline) 10 ml IVF PRN PRN PRN Reason: Saline Flush Thiamine HCl (Thiamine) 100 mg PO QAM [facility] Last Admin: 08/12/18 09:05 Dose: 100 mg Zolpidem Tartrate (Ambien) 5 mg PO HSPRN PRN PRN Reason: Insomnia
[2018-08-12] MEDS: Nicotine 21 MG PATCH TD SCH (20:29)
[2018-08-12] MEDS: Acetaminophen 325 MG TAB PO PRN (20:39)
[2018-08-13] MEDS: Piperacillin/Tazobactam 3.375 GM in Sodium Chloride 0.9% 100 ML IVPB SCH ×2 (01:15→08:27)
[2018-08-13] MEDS: Oxazepam 10 MG CAP PO SCH (08:27)
[2018-08-13] MEDS: Folic Acid 1 MG TAB PO SCH (08:27)
[2018-08-13] MEDS: Thiamine 100 MG TAB PO SCH (08:27)
--- NOTE | 2018-08-13 08:42 | PRG ---
DATE OF SERVICE: 08/12/2018 REASON FOR CONSULTATION: Abdominal pain, ischemic colitis. SUBJECTIVE: Today, the patient states that his abdominal pain continues to improve with no longer generalized tenderness to the abdomen, but rather just mild tenderness to right lower quadrant. He also states that he had approximately two medium to large-sized bowel movements earlier this morning with a fair amount of flatus past as well. He has been able to tolerate a clear diet without any problems. Currently, denies any nausea, vomiting, fevers, chills, or GI bleeding. OBJECTIVE: VITAL SIGNS: Temperature 97.3, pulse 77, blood pressure 158/88, respiratory rate 20, and saturating 99% on room air. GENERAL: The patient is lying in bed, in no acute distress. Alert and oriented x4. CARDIOVASCULAR: Regular rate and rhythm. RESPIRATORY: Clear to auscultation bilaterally. ABDOMEN: Normoactive bowel sounds. Soft, nondistended, mild tenderness to palpation in the right lower quadrant. EXTREMITIES: No cyanosis, clubbing, or edema. LABORATORY DATA: CBC with a white blood cell count of 7.5, hemoglobin 12.5, hematocrit 35.3, and platelets 38. Chemistry with a sodium of 134, potassium 3.2, chloride 102, CO2 of 28, BUN 5, creatinine 0.69, and glucose 92. IMAGING DATA: No current GI imaging is available for review. ASSESSMENT AND PLAN: The patient is a 73-year-old male with past medical history of alcohol abuse, tobacco abuse, and probable benign prostatic hyperplasia with elevated PSA, presenting with increased abdominal pain and endoscopy consistent with ischemic colitis. Ischemic colitis. The patient initially presented with relatively acute onset of periumbilical abdominal pain characterized as a cramping/aching type sensation that was associated with increased nausea, vomiting, and decreased frequency of bowel movements prior to admission. On admission to the ER, he was noted to have imaging findings consistent for a cecal volvulus/bascule. However, upon conferring with Radiology and General Surgery Services, it was unclear if there was another lesion within the left colon creating a possible obstructive picture. Subsequently, he underwent flexible sigmoidoscopy on 08/10/2018, at which point, the cecum was able to be visualized with the colonic mucosa exhibiting an increased mucosal erythema as well as a mottled type appearance with purplish hue and dusky coloration consistent with ischemic colitis. With more conservative management with IV fluids, maintaining normotensive pressures, the patient has continued to improve over the last 24 to 48 hours with minimal abdominal pain on physical examination today, and now having multiple bowel movements. RECOMMENDATIONS: 1. Would continue patient on IV fluid administration, although we will consider decreasing this as the patient's diet improves. 2. Would consider advancing diet as tolerated. 3. Would consider obtaining a CT angiography for further evaluation of the superior mesenteric artery and its tributaries, although this does not need to be performed during this hospitalization. 4. Would avoid anticoagulation at the current point in time. 5. Agree with antibiotic administration for prophylaxis against abdominal infection given ulcerations seen on flexible sigmoidoscopy, but would discontinue at five days total therapy. Given the improvement in the patient's clinical status, we will sign off at this time. Please call with any additional questions. Job ID: [id number]
[2018-08-13 09:05] LABS: #Basophils 0.1 thou/uL (0.0-0.2); #Eosinphils 0.1 thou/uL (0.0-0.7); #Monocytes 0.6 thou/uL (0.11-0.59); %Eosinophils 2.5 % (0.0-10.0); %Lymphocytes 17.5 % (21.0-51.0); %Monocytes 9.8 % (0.0-10.0); %Neutrophils 69.3 % (42.0-75.0); Hemoglobin 13.6 g/dL (14.0-18.0); Mean Corpuscular Volume 91.4 fL (78.0-98.0); Platelet Count 42 thou/uL (130-400); RBC Distribution Width 11.8 % (11.5-14.5); Red Blood Cell (RBC) Count 4.26 mill/uL (4.70-6.10); White Blood Cell (WBC) Count 5.7 thou/uL (4.8-10.8)
[2018-08-13 09:16] LABS: Anion Gap 10 mmol/L (10-20); BUN (Urea Nitrogen) 4 mg/dL (8.4-25.7); Calc. Creatinine Clearance 96 mL/min (70-130); Calcium 8.2 mg/dL (7.8-10.44); Carbon Dioxide 29 mmol/L (23-31); Chloride 100 mmol/L (98-107); Estimated GFR-MDRD Greater than 90; Glucose 104 mg/dL (83-110); Sodium 136 mmol/L (136-145)
--- NOTE | 2018-08-13 10:20 | PRG ---
DATE OF SERVICE: 08/13/2018 SUBJECTIVE: Mr. Arredondo is a 73-year-old man admitted with abdominal pain. He reports no abdominal pain this morning. He tolerates general diet and is having normal bowel and urinary function. OBJECTIVE: VITAL SIGNS: His vital signs today include blood pressure is 151/77, pulse is 80, respiratory rate is 14, temperature is 97.9 degrees Fahrenheit, and oxygen saturation is 99% on room air. ABDOMEN: Soft, nontender, and nondistended. Clearly, he has no peritoneal signs on examination. LABORATORY DATA: Laboratory findings today include a CBC with 5700 white blood cells, hemoglobin and hematocrit of 13.6 and 38.9 respectively. Platelet count is stable at 42,000. IMPRESSION: 1. Resolved abdominal pain. 2. Resolving acute ischemic colitis. This patient is certainly hemodynamically stable for discharge from surgical perspective as there remains no acute surgical indication. He is to follow up with his primary care physician as needed and return to the emergency department with any exacerbation of abdominal pain, fever in excess of 101 degrees Fahrenheit, or intolerance to oral intake. Above findings and recommendations were discussed with the patient, who indicates understanding of information given. It is my understanding the patient is transferring to a correction facility today. Job ID: [id number]
[2018-08-13 12:12] VITALS: BP 155/76; TEMP 98.2
[2018-08-13] MEDS ORDERED: Potassium Chloride 20 MEQ TAB PO SCH (13:15)
--- NOTE | 2018-08-13 13:15 | PDOC.EVN ---
Event Note - Event Note Event Note: Contacted nurse Smiley at [facility] [phone]. Notified her regarding pt's potassium 3.0, pt left before he could receive potassium replacement. She will notify Dr Norton and obtain an order for potassium.
--- NOTE | 2018-08-13 14:31 | DIS ---
DATE OF ADMISSION: 08/10/2018 DATE OF DISCHARGE: 08/13/2018 PRIMARY CARE PROVIDER: Beny Norton MD DISCHARGE DIAGNOSES: 1. Ischemic colitis. 2. Hypokalemia. 3. Hyponatremia. 4. Difficulty ambulating. CONDITION OF PATIENT ON THE DAY OF DISCHARGE: Stable. I assessed Mr. Arredondo on the day of discharge. He denies any chest pain or shortness of breath. Vital signs are stable. S1 and S2 are heard, regular. Lungs are clear to auscultation bilaterally. Abdomen is soft, nontender. Bowel sounds are heard. CONSULTATIONS DURING THIS HOSPITALIZATION: 1. General Surgery, Dr. Dasilva. 2. Gastroenterology, Dr. Melo. DISCHARGE MEDICATIONS: 1. Nicotine 21 mg patch daily. 2. Ciprofloxacin 500 mg 2 times a day for 2 more days. 3. Colace 100 mg 2 times a day. 4. Folic acid 1 mg daily. 5. Metronidazole 500 mg three times a day for 2 more days. 6. Oxazepam 10 mg three times a day. 7. Thiamine 100 mg daily. HOSPITAL COURSE: Mr. Arredondo is a pleasant 73-year-old gentleman, who was admitted to [facility] on August 10, 2018, for abdominal pain. Please refer to Dr. Araujo's history and physical note dated August 10, 2018, for further details. He was seen by [facility]. Initially, there was concern for volvulus. He had underwent flexible sigmoidoscopy on August 10, at which point, the cecum was able to be visualized with the colonic mucosa exhibiting an increased mucosal erythema as well as mottled type appearance of purplish hue and dusky coloration consistent with ischemic colitis. The patient improved with conservative management. He was on empiric antibiotics at the time of admission, which was stepped down to oral antibiotics. He was also having difficulty ambulating. He was seen by [facility]. He is being discharged to the [facility] in [place] for further management. Many thanks for allowing me to participate in your patient's care. Please feel free to contact me with any questions or concerns. DISCHARGE DESTINATION: [facility]. TIME SPENT: Total amount of time spent coordinating this discharge: 31 minutes. Job ID: [id number] [facility]
== END 2018-08-13 13:00 | DRG 394 ==
LOC: ERS 22:43 → SJJU 08-10 02:18
PROVIDERS: ADMIT Internal Medicine; ATTEND Internal Medicine
PROC: 0DBQ8ZX Excision of Anus, Via Natural or Artificial Opening Endoscopic, Diagnostic (ICD-10-PCS; principal; 2018-08-10)
DX: K55.9 Vascular disorder of intestine, unspecified (principal); E22.2 Syndrome of inappropriate secretion of antidiuretic hormone; K63.5 Polyp of colon; F17.210 Nicotine dependence, cigarettes, uncomplicated; K64.8 Other hemorrhoids; N40.0 Benign prostatic hyperplasia without lower urinary tract symptoms; F10.10 Alcohol abuse, uncomplicated; R26.2 Difficulty in walking, not elsewhere classified; D69.6 Thrombocytopenia, unspecified; E87.6 Hypokalemia
CPT/HCPCS: 36415; 36416; 71045; 71250; 74177; 80048; 80053; 81003; 82570; 83605; 83690; 83735; 83930; 83935; 84100; 84300; 84484; 85025; 88305; 93005; 96361; 96374; 96375; J1170; J1885; J2001; J2270; J2405; J2543; J2704; J3010; J3475; J3480; J7050; Q9966; Q9967